=== PATIENT | male | born 1955 ===

== ENCOUNTER 2024-09-13 17:42 | Emergency (ER) | payer SELFPAY ==
[~2024-09-13] VITALS: Ht 182.9 cm; Wt 84.1 kg
[2024-09-13 17:49] VITALS: BP 144/86; TEMP 96.9; O2SAT 99
== END 2024-09-13 20:00 | disposition left against medical advice (07) ==
LOC: M ED 17:42
DX: Z53.21 Procedure and treatment not carried out due to patient leaving prior to being seen by health care provider (principal)